=== PATIENT | female | born 1990 | race Two or more races ===

== ENCOUNTER 2018-03-10 10:53 | Emergency (ER) | payer OTHER ==
[2018-03-10 10:57] VITALS: BP 132/82; PULSE 66; TEMP 98.2; BMI 28.2
--- NOTE | 2018-03-10 11:34 | PDOC ---
History of Present Illness - General Chief Complaint: Pain Stated Complaint: PAIN Time Seen by Provider: 03/10/18 11:33 History Source: Patient Exam Limitations: No Limitations - History of Present Illness Initial Comments: CHIEF COMPLAINT: 27 y/o afebrile female with no significant PMH c/o left side pain radiating into her pelvis that has worsened over the past week. HISTORY OF PRESENT ILLNESS: The patient also admits to some dysuria and feeling "warm". She denies chills, PAUL, n/v/d, CP, SOB, hematuria. She admits her menstrual cycle is normal and her LMP was last week. Vital signs on arrival are within normal limits. REVIEW OF SYSTEMS: GENERAL/CONSTITUTIONAL: ?subjective fever. No chills. No weakness. No weight change. HEAD, EYES, EARS, NOSE AND THROAT: No change in vision. No ear pain or discharge. No sore throat. CARDIOVASCULAR: No chest pain or shortness of breath. RESPIRATORY: No cough, wheezing, or hemoptysis. GASTROINTESTINAL: No nausea, vomiting, diarrhea, constipation, abdominal pain. GENITOURINARY: +dysuria. No frequency or hematuria. MUSCULOSKELETAL: +left side pain and left pelvic pain . No joint or muscle swelling or pain. No neck pain. SKIN: No rash or easy bruising. NEUROLOGIC: No headache, vertigo, loss of consciousness, or loss of sensation. PHYSICAL EXAM: GENERAL: The patient is awake, alert, and fully oriented, in no acute distress. She is very well appearing and ambulatory. HEAD: Normal with no signs of trauma. ENT: Pupils equal, round and reactive to light, extraocular movements intact, sclera anicteric, conjunctiva clear. Neck supple. LUNGS: Clear to auscultation bilaterally. Normal excursion. No respiratory distress or use of accessory muscles. CV: RRR, S1/S2, no MRG. Cap refill < 2 sec. ABDOMEN: Left flank TTP. Soft, non-distended, no hepatomegaly or splenomegaly, no masses. BACK: No CVA TTP b/l. Pain reproduced with palpation of left lumbar paravertebral muscles. EXTREMITIES: Normal range of motion, no edema. NEUROLOGICAL: Normal speech, normal gait. CN II-XII grossly intact. SKIN: Warm, dry, normal turgor, no rashes or lesions noted. Past History - Past Medical History Allergies/Adverse Reactions: Allergies Allergy/AdvReac Type Severity Reaction Status Date / Time aspirin Allergy Swelling Verified 03/10/18 10:54 Home Medications: Ambulatory Orders Pnv,Calcium 72/Iron/Folic Acid [ Plus Tablet] 1 each PO DAILY 09/22/15 Acetaminophen [Tylenol .Regular Strength -] 650 mg PO Q4H PRN #0 tablet Ibuprofen [Motrin -] 600 mg PO Q4H PRN #20 tablet 12/25/15 Vitamins (Sjr) - 1 tab PO DAILY tablet 12/25/15 Miscellaneous Medical Supply [Breast Pump, Electronic] 1 each NR ASDIR #1 unit 12/27/15 Ibuprofen 800 mg PO TID #20 tablet 03/10/18 Asthma: Yes Cancer: No Cardiac Disorders: No COPD: No Diabetes: No HTN: No Seizures: No Thyroid Disease: No - Suicide/Smoking/Psychosocial Hx Smoking History: Never smoked Have you smoked in the past 12 months: No Information on smoking cessation initiated: No Hx Alcohol Use: No Drug/Substance Use Hx: No Substance Use Type: None Hx Substance Use Treatment: No *Physical Exam - Vital Signs Last Vital Signs Temp Pulse Resp BP Pulse Ox 98.2 F 66 18 132/82 100 03/10/18 10:54 03/10/18 10:54 03/10/18 10:54 03/10/18 10:54 03/10/18 10:54 Medical Decision Making - Medical Decision Making A/P: 27 y/o female with signs and symptoms of UTI vs kidney stone vs muscular strain. Plan is as follows: 1. UA/culture/hcg hcg - negative UA negative for UTI No hematuria to indicate kidney stone Will give IM toradol After toradol patient states she does feel better with almost complete resolution of pain. Suspect muscle strain of low back. Will discharge to home with rx for ibuprofen. Instructed her to take with food, use heating pad to affected area and return to the ER with any worsening or concerning symptoms. The patient verbalizes understanding of all instructions, has no further questions and is awaiting discharge. *DC/Admit/Observation/Transfer Diagnosis at time of Disposition: Muscle strain Low back pain Qualifiers: Chronicity: acute Back pain laterality: left Sciatica presence: without sciatica Qualified Code(s): M54.5 - Low back pain - Discharge Dispostion Disposition: HOME Condition at time of disposition: Good - Referrals Referrals: Colette Ramirez MD [Primary Care Provider] - - Patient Instructions Printed Discharge Instructions: DI for Muscle Strain, DI for Low Back Pain Additional Instructions: Discharge Instructions: -Your urine test was negative for urinary tract infection and kidney stone -You have a muscle strain -A prescription for pain medication has been sent to your pharmacy; please take with food -Apply heating pad to the affected area to help with pain -Follow up with your doctor within 1 week -Return to the ER with any worsening or concerning symptoms. - Post Discharge Activity Forms/Work/School Notes: Back to Work
[2018-03-10 11:53] LABS: HCG,QUALITATIVE URINE NEGATIVE; URINE APPEARANCE SLCLOUDY; URINE BILIRUBIN NEGATIVE (<2.0 mg/dL); URINE BLOOD NEGATIVE (NEGATIVE); URINE COLOR LTYELLOW; URINE GLUCOSE (UA) NEGATIVE (NEGATIVE); URINE KETONE NEGATIVE (NEGATIVE); URINE LEUK ESTERASE NEGATIVE (NEGATIVE); URINE NITRITE NEGATIVE (NEGATIVE); URINE PROTEIN NEGATIVE (NEGATIVE); URINE UROBILINOGEN NEGATIVE mg/dL (0.2-1.0)
[2018-03-10] MEDS ORDERED: KETOROLAC TROMETHAMINE 60 MG/2 ML VIAL IM ONE (11:59)
[2018-03-10] MEDS ORDERED: KETOROLAC TROMETHAMINE 60 MG/2 ML VIAL ONE (12:05)
--- NOTE | 2018-03-10 12:54 | PDOC ---
*Physical Exam - Vital Signs Last Vital Signs Temp Pulse Resp BP Pulse Ox 98.2 F 66 18 132/82 100 03/10/18 10:54 03/10/18 10:54 03/10/18 10:54 03/10/18 10:54 03/10/18 10:54 - Physical Exam General Appearance: Yes: Nourished HEENT: positive: Normal ENT Inspection Neck: positive: Trachea midline Respiratory/Chest: positive: Lungs Clear, Normal Breath Sounds Cardiovascular: positive: Regular Rhythm, Regular Rate, S1, S2 Gastrointestinal/Abdominal: positive: Normal Bowel Sounds, Flat, Soft. negative : Tender Musculoskeletal: positive: Other (left paraspinal spasm, ls tenderness paraspinally only. ). 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 strength 5/5.) ED Treatment Course - ADDITIONAL ORDERS Additional order review: Laboratory Results 03/10/18 11:34 Urine Color Ltyellow Urine Appearance Slcloudy Urine pH 5.0 D Ur Specific Maynard 1.015 Urine Protein Negative Urine Glucose (UA) Negative Urine Ketones Negative Urine Blood Negative Urine Nitrite Negative Urine Bilirubin Negative Urine Urobilinogen Negative Ur Leukocyte Esterase Negative Urine HCG, Qual Negative - Medications Given in the ED: ED Medications Discontinued Medications Generic Name Dose Route Start Last Admin Trade Name Freq PRN Reason Stop Dose Admin Ketorolac Tromethamine 60 mg 03/10/18 11:59 03/10/18 12:14 Toradol Injection - IM 03/10/18 12:00 60 mg ONCE ONE Administration Medical Decision Making - Medical Decision Making 03/10/18 12:52 27 yo F with recent viral cold, here with low left back pain. has had frequent urination but no dysuria. no f/c no new weakness or numbness. states pain is worse with bending and lifting. did not take anything for pain prior to arrival. on exam lower ext strenth intact. nomildline spinal tenderness. lower ext strength intact and sensation intact. ayse msk pain / strain. r/o uti with ua, ucg. will treat wiht antiinflammatories. pt seen and examined in conjunction with Meg Vilchis, agree with assessment and plan. *DC/Admit/Observation/Transfer - Referrals Referrals: Colette Ramirez MD [Primary Care Provider] - - Patient Instructions - Post Discharge Activity
== END 2018-03-10 14:01 | disposition home or self-care (01) ==
LOC: JER 10:53
PROC: 3E0233Z Introduction of Anti-inflammatory into Muscle, Percutaneous Approach (ICD-10-PCS; principal; 2018-03-10)
DX: S39.012A Strain of muscle, fascia and tendon of lower back, initial encounter (principal); X58.XXXA Exposure to other specified factors, initial encounter; Y93.89 Activity, other specified; Y92.89 Other specified places as the place of occurrence of the external cause; Y99.8 Other external cause status; Z88.6 Allergy status to analgesic agent
CPT/HCPCS: 81003; 84703; 87086; 96372; 99283-25

== ENCOUNTER 2022-09-07 09:35 | Inpatient (IN) | payer OTHER ==
[2022-09-07 12:24] LABS: BASO % 0.3 % (0-2.0); EOS % 0.8 % (0-4.5); HEMATOCRIT 39.9 % (32.4-45.2); HEMOGLOBIN 13.6 GM/dL (10.7-15.3); LYMPH % 17.2 % (8-40); MCH 32.3 pg (25.7-33.7); MEAN PLT VOLUME 8.5 fl (7.5-11.1); MONO % 7.9 % (3.8-10.2); NEUT % 73.8 % (42.8-82.8); PLATELET COUNT 172 10^3/uL (134-434); RDW 13.7 % (11.6-15.6); WHITE BLOOD COUNT 9.2 K/mm3 (4.0-10.0)
[2022-09-07 12:32] LABS: INR 1.05 (0.83-1.09); PROTHROMBIN TIME (PATIENT) 12.1 SEC (9.7-13.0)
[2022-09-07 12:34] LABS: ACTIVATED PTT 28.1 SECONDS (25.2-36.5)
[2022-09-07 12:36] VITALS: BMI 34.5
[2022-09-07 13:01] LABS: CALCIUM 9.5 mg/dL (8.5-10.1)
[2022-09-07 13:06] LABS: CREATININE 0.4 mg/dL (0.55-1.3)
[2022-09-07 13:50] LABS: HEPATITIS B SURFACE AG MATERN NON-REACTIVE (NONREACTIVE)
[2022-09-07 14:19] LABS: HIV INTERPRETATION NEGATIVE (NEGATIVE)
[2022-09-07] MEDS ORDERED: ELECTROLYTE-148 SOLN 1,000 ML IV SCH (15:30)
[2022-09-07] MEDS ORDERED: CITRIC ACID/SODIUM CITRATE 30 ML UNIT-DOSE CUP PO ONE (18:24)
[2022-09-07] MEDS ORDERED: ONDANSETRON 4 MG/2 ML VIAL IVPUSH PRN (19:08)
[2022-09-07] MEDS ORDERED: morphine SULFATE (PF) 1 MG/2 ML SYRINGE ONE (19:17)
[2022-09-07] MEDS ORDERED: ceFAZolin SODIUM 1 GM VIAL ONE (19:20)
[2022-09-07] MEDS ORDERED: ONDANSETRON 4 MG/2 ML VIAL ONE (19:47)
[2022-09-07 20:57] LABS: CORD BASE EXCESS -3.7 mmol/L (0-2); CORD PCO2 42.2 mmHg (30-78); CORD pH 7.335 (7.14-7.44)
[2022-09-07 21:02] LABS: CORD BASE EXCESS -2.1 mmol/L (0-2); CORD HCO3 25.8 mmHg (20-29); CORD PCO2 57.6 mmHg (30-78); CORD pH 7.269 (7.14-7.44)
[2022-09-07] MEDS ORDERED: METHYLERGONOVINE MALEATE 0.2 MG/1 ML AMP IM PRN (21:03)
[2022-09-07] MEDS: OXYTOCIN 20 UNITS in 0.9% NS 20 UNIT/1,000 ML INFUS.BAG IV SCH (21:30)
[2022-09-07] MEDS ORDERED: OXYTOCIN 20 UNITS in 0.9% NS 20 UNIT/1,000 ML INFUS.BAG IV ONE (21:41)
[2022-09-08] MEDS: ACETAMINOPHEN 1000 MG/100 ML BAG IVPB PRN ×2 (00:32→07:16)
[2022-09-08] MEDS: OXYTOCIN 20 UNITS in 0.9% NS 20 UNIT/1,000 ML INFUS.BAG IV SCH ×2 (04:37→22:49)
[2022-09-08 07:20] VITALS: RESP 18
[2022-09-08] MEDS ORDERED: DIPHTH,PERTUSS(ACELL),TET 0.5 ML DISP.SYRIN IM ONE ×2 (07:45→10:00)
[2022-09-08 08:06] LABS: BASO % 0.2 % (0-2.0); EOS % 0.7 % (0-4.5); HEMATOCRIT 36.1 % (32.4-45.2); HEMOGLOBIN 12.1 GM/dL (10.7-15.3); LYMPH % 15.7 % (8-40); MCH 31.6 pg (25.7-33.7); MCHC 33.5 g/dl (32.0-36.0); MEAN CELL VOLUME 94.4 fl (80-96); MEAN PLT VOLUME 8.5 fl (7.5-11.1); MONO % 10.1 % (3.8-10.2); NEUT % 73.3 % (42.8-82.8); PLATELET COUNT 149 10^3/uL (134-434); RBC 3.83 M/mm3 (3.60-5.2); RDW 13.8 % (11.6-15.6); WHITE BLOOD COUNT 8.4 K/mm3 (4.0-10.0)
[2022-09-08] MEDS: oxyCODONE HCL 5 MG TABLET PO PRN ×3 (10:02→20:00)
[2022-09-08] MEDS: SIMETHICONE 80 MG TAB.CHEW (FP) PO PRN ×3 (10:02→20:00)
[2022-09-08] MEDS: ACETAMINOPHEN 325 MG TABLET (FP) PO PRN (14:10)
[2022-09-08] MEDS: SENNOSIDES/DOCUSATE COMBO (SENNA PLUS) TABLET (UD) PO PRN (22:04)
[2022-09-09] MEDS: oxyCODONE HCL 5 MG TABLET PO PRN ×5 (06:06→20:15)
[2022-09-09] MEDS: SIMETHICONE 80 MG TAB.CHEW (FP) PO PRN ×3 (06:06→20:15)
[2022-09-09] MEDS: ACETAMINOPHEN 325 MG TABLET (FP) PO PRN ×3 (07:55→17:02)
[2022-09-09] MEDS: BISACODYL 10 MG SUPP.RECT RC PRN ×2 (17:03)
[2022-09-09] MEDS: SENNOSIDES/DOCUSATE COMBO (SENNA PLUS) TABLET (UD) PO PRN (20:15)
[2022-09-10] MEDS: oxyCODONE HCL 5 MG TABLET PO PRN ×2 (01:01→08:27)
[2022-09-10 07:55] VITALS: BP 120/82; PULSE 94; TEMP 98
[2022-09-10 09:08] LABS: BASO % 0.4 % (0-2.0); EOS % 1.4 % (0-4.5); HEMATOCRIT 32.8 % (32.4-45.2); HEMOGLOBIN 11.4 GM/dL (10.7-15.3); LYMPH % 17.7 % (8-40); MCHC 34.6 g/dl (32.0-36.0); MEAN CELL VOLUME 95.4 fl (80-96); MEAN PLT VOLUME 7.8 fl (7.5-11.1); MONO % 7.6 % (3.8-10.2); NEUT % 72.9 % (42.8-82.8); PLATELET COUNT 182 10^3/uL (134-434); RBC 3.44 M/mm3 (3.60-5.2); RDW 14.1 % (11.6-15.6); WHITE BLOOD COUNT 9.5 K/mm3 (4.0-10.0)
[2022-09-10] MEDS: ACETAMINOPHEN 325 MG TABLET (FP) PO PRN (13:13)
[2022-09-10] MEDS: SIMETHICONE 80 MG TAB.CHEW (FP) PO PRN (13:13)
== END 2022-09-10 15:27 | disposition home or self-care (01) | DRG 540 ==
LOC: JDEL 09:35 → JLDR 10:45 → J3W 22:47
PROVIDERS: ADMIT Family Medicine; ATTEND Family Medicine
PROC: 10D00Z1 Extraction of Products of Conception, Low, Open Approach (ICD-10-PCS; principal; 2022-09-07)
PROC: 0UL70ZZ Occlusion of Bilateral Fallopian Tubes, Open Approach (ICD-10-PCS; 2022-09-07)
DX: O34.211 Maternal care for low transverse scar from previous cesarean delivery (principal); Z3A.37 37 weeks gestation of pregnancy; Z37.0 Single live birth; Z87.09 Personal history of other diseases of the respiratory system
CPT/HCPCS: 36415; 36600; 80048; 82803; 85025; 85461; 85610; 85730; 86780; 86850; 86870; 86900; 86901; 86902; 87340; 87389; 88302-TC; 88307-TC; C9803-CS; U0003; U0005

== ENCOUNTER 2023-10-28 17:54 | Emergency (ER) | payer OTHER ==
[2023-10-28 19:01] VITALS: BP 136/91; PULSE 60; RESP 18; TEMP 98.3; BMI 31.3
[2023-10-28] MEDS ORDERED: IBUPROFEN 600 MG TABLET (FP) PO ONE ×2 (20:17→20:28)
[2023-10-28 20:42] LABS: EOS % 2.6 % (0-4.5); HEMATOCRIT 38.4 % (32.4-45.2); LYMPH % 34.7 % (8-40); MCH 29.6 pg (25.7-33.7); MCHC 33.8 g/dl (32.0-36.0); MEAN CELL VOLUME 87.6 fl (80-96); MEAN PLT VOLUME 7.8 fl (7.5-11.1); MONO % 6.7 % (3.8-10.2); PLATELET COUNT 267 10^3/uL (134-434); RBC 4.39 M/mm3 (3.60-5.2); RDW 14.8 % (11.6-15.6); WHITE BLOOD COUNT 7.1 K/mm3 (4.0-10.0)
[2023-10-28 21:05] LABS: POTASSIUM 3.8 mmol/L (3.5-5.1)
[2023-10-28 21:07] LABS: CALCIUM 8.6 mg/dL (8.5-10.1)
[2023-10-28 21:08] LABS: ALBUMIN 3.8 g/dl (3.4-5.0); BLOOD UREA NITROGEN 8.6 mg/dL (7-18)
[2023-10-28 21:11] LABS: CREATININE 0.8 mg/dL (0.55-1.3)
[2023-10-28 21:13] LABS: BILIRUBIN,TOTAL 0.8 mg/dL (0.2-1); TOT PROT 7.7 g/dl (6.4-8.2)
== END 2023-10-28 22:21 | disposition home or self-care (01) ==
LOC: JER 17:54
DX: R07.89 Other chest pain (principal)
CPT/HCPCS: 36415; 71046-TC-FY; 80053; 84484; 84703; 85025; 93005; 93010; 99285-25

== ENCOUNTER 2023-11-13 18:54 | Emergency (ER) | payer OTHER ==
[2023-11-13 19:07] VITALS: BP 138/83; PULSE 65; RESP 18; TEMP 98.3; BMI 31.3
[2023-11-13] MEDS ORDERED: ACETAMINOPHEN 500 MG TABLET (FP) PO ONE (21:15)
[2023-11-13] MEDS ORDERED: IBUPROFEN 600 MG TABLET (FP) PO ONE ×2 (21:16→21:22)
[2023-11-13] MEDS ORDERED: METHOCARBAMOL 500 MG TABLET PO ONE (21:16)
[2023-11-13] MEDS ORDERED: ACETAMINOPHEN 500 MG TABLET (FP) ONE (21:22)
[2023-11-13] MEDS ORDERED: METHOCARBAMOL 500 MG TABLET ONE (21:22)
== END 2023-11-13 21:29 | disposition home or self-care (01) ==
LOC: JERFT 18:54
DX: M25.511 Pain in right shoulder (principal); V47.6XXA Car passenger injured in collision with fixed or stationary object in traffic accident, initial encounter; Y92.410 Unspecified street and highway as the place of occurrence of the external cause
CPT/HCPCS: 99283-25